=== PATIENT | female | born 1980 | race Caucasian/White ===

== ENCOUNTER 2018-05-27 10:36 | Emergency (ER) | payer SELFPAY ==
[2018-05-27] MEDS ORDERED: KETOROLAC 30 MG INJ IM (11:34)
== END 2018-05-27 15:04 | disposition left against medical advice (07) ==
LOC: E/R 10:36
DX: F11.10 Opioid abuse, uncomplicated (principal); R06.02 Shortness of breath; F29 Unspecified psychosis not due to a substance or known physiological condition; M54.5 Low back pain
CPT/HCPCS: 99283